=== PATIENT | female | born 1990 | race Caucasian/White ===

== ENCOUNTER → 2020-09-20 | Outpatient (CLI) | payer BC ==
[~2020-09-20] MED LIST: ACET325 PO; CODACE30 PO; CRUTCH4 USE; IBUP800 PO; KETO10 PO; NAPR500 PO; OXYACE5T PO; PRED20 PO; PROM25 PO
[2020-09-22 14:43] LABS: CORONAVIRUS (COVID19) CSH-NRL Negative (Negative)
== END ==
LOC: LAB SHORT 19:08
PROVIDERS: Family Medicine
DX: Z20.822 Contact with and (suspected) exposure to COVID-19 (principal)
CPT/HCPCS: U0003

== ENCOUNTER 2023-07-09 07:03 | Emergency (ER) | payer BC ==
[~2023-07-09] VITALS: Ht 157.5 cm; Wt 90.7 kg
[2023-07-09] MEDS ORDERED: EUTHYROX75 MC1 PO (07:39)
[2023-07-09] MEDS ORDERED: MELO7.5 PO (07:39)
[2023-07-09] MEDS ORDERED: PROP10 PO (07:39)
[2023-07-09] MEDS ORDERED: LIDO700A20 TOP (08:58)
[2023-07-09] MEDS ORDERED: NAPR500 PO (08:58)
[2023-07-09 09:08] VITALS: BP 110/76
== END 2023-07-09 09:09 | disposition home or self-care (01) ==
LOC: ER 07:03
DX: M24.212 Disorder of ligament, left shoulder (principal); F17.210 Nicotine dependence, cigarettes, uncomplicated; Z79.890 Hormone replacement therapy; Z79.899 Other long term (current) drug therapy
CPT/HCPCS: 73030; 96374; 99283-25; J1885